=== PATIENT | male | born 2000 | race Caucasian/White ===

== ENCOUNTER 2019-08-27 17:47 | Emergency (ER) | payer OTHER ==
[2019-08-27 18:28] LABS: Influenza A Molecular Negative (Negative); Influenza B Molecular Negative (Negative)
[2019-08-27] MEDS ORDERED: Ondansetron INJ* 2 MG/ML VIAL IV ONE (18:49)
[2019-08-27] MEDS ORDERED: NS 0.9% 1000 ML** 1,000 ML IV ONE ×2 (18:49→20:58)
--- NOTE | 2019-08-27 18:58 | ED ---
Influenza-Like Illness - HPI Summary HPI Summary: 18 y/o male presented to [facility] for illness present for roughly 24 hours. Patient complains of vomiting roughly every 30 minutes, chills, sweats, constipation, rhinorrhea, and cramps. He denies sore throat. He notes a history of hypoglycemia also present in his mother, and a replaced heart valve in his grandfather. He notes no surgical history and no use of tobacco, alcohol, or other drugs. - History of Current Complaint Chief Complaint: EDFluSymptoms Time Seen by Provider: 08/27/19 18:26 Hx Obtained From: Patient Onset/Duration: Still Present Severity: Moderate Associated Signs & Symptoms: Cough, Vomiting - Allergy/Home Medications Allergies/Adverse Reactions: Allergies Allergy/AdvReac Type Severity Reaction Status Date / Time cefdinir [From Omnicef] Allergy Hives Verified 08/27/19 17:54 PMH/Surg Hx/FS Hx/Imm Hx Sensory History: Denies: Hx Legally Blind, Hx Deafness Opthamlomology History: Denies: Hx Legally Blind EENT History: Denies: Hx Deafness Infectious Disease History: No Infectious Disease History: Denies: Traveled Outside the [place] in Last 30 Days - Family History Known Family History: Positive: Other - hypoglycemia - Social History Alcohol Use: None Substance Use Type: Reports: None Smoking Status (MU): Never Smoked Tobacco Review of Systems Positive: Chills, Skin Diaphoresis Positive: Nasal Discharge Positive: Vomiting, Other - constipation Positive: Other - cramps All Other Systems Reviewed And Are Negative: Yes Physical Exam - Summary Physical Exam Summary: VITAL SIGNS: Reviewed. GENERAL: Patient is a well-developed and nourished male who is lying comfortable in the stretcher. Patient is not in any acute respiratory distress. HEAD AND FACE: No signs of trauma. No ecchymosis, hematomas or skull depressions. No sinus tenderness. EYES: PERRLA, EOMI x 2, No injected conjunctiva, no nystagmus. EARS: Hearing grossly intact. Ear canals and tympanic membranes are within normal limits. MOUTH: Oropharynx within normal limits. NECK: Supple, trachea is midline, no adenopathy, no JVD, no carotid bruit, no c- spine tenderness, neck with full ROM. CHEST: Symmetric, no tenderness at palpation. LUNGS: Clear to auscultation bilaterally. No wheezing or crackles. CVS: Regular rate and rhythm, S1 and S2 present, no murmurs or gallops appreciated. ABDOMEN: Soft, non-tender. No signs of distention. No rebound, no guarding, and no masses palpated. Bowel sounds are normal. EXTREMITIES: FROM in all major joints, no edema, no cyanosis or clubbing. NEURO: Alert and oriented x 3. No acute neurological deficits. Speech is normal and follows commands. SKIN: Dry and warm. Triage Information Reviewed: Yes Vital Signs On Initial Exam: Initial Vitals Temp Pulse Resp BP Pulse Ox 100.7 F 108 18 117/65 96 08/27/19 17:51 08/27/19 17:51 08/27/19 17:51 08/27/19 17:51 08/27/19 17:51 Vital Signs Reviewed: Yes Procedures - Sedation Patient Received Moderate/Deep Sedation with Procedure: No Diagnostics - Vital Signs Vital Signs Temp Pulse Resp BP Pulse Ox 08/27/19 17:51 100.7 F 108 18 117/65 96 - Laboratory Lab Results: Lab Results 08/27/19 08/27/19 Range/Units 17:57 18:40 POC Glucose (mg/dL) 90 (70-100) mg/dL Influenza A (Rapid) Negative (Negative) Influenza B (Rapid) Negative (Negative) Result Diagrams: 08/27/19 19:04 08/27/19 19:04 Lab Statement: Any lab studies that have been ordered have been reviewed, and results considered in the medical decision making process. Flu Symptom Course/Dx - Course Assessment/Plan: 18 y/o male presented to [facility] for illness present for roughly 24 hours. Patient complains of vomiting roughly every 30 minutes, chills, sweats , constipation, rhinorrhea, and cramps. He denies sore throat. He notes a history of hypoglycemia also present in his mother, and a replaced heart valve in his grandfather. He notes no surgical history and no use of tobacco, alcohol , or other drugs. In the ED course the patient was placed in a hall monitor , IV access was obtained, IV fluids started. He was given Zofran for nausea and vomiting. Blood test w/o a significant abnormality except for diagnosis of 14.6 , chloride 100, CRP of 79.4. Influenza A and B is negative. After the patient was hydrated and given Zofran the symptoms subsided. At this time the patient is able to tolerate fluids without any nausea and vomiting. Patient has no other complaints. Patient will be referred to Cardiology for Bigeminy. I discussed all the findings and test results with the patient. Patient was instructed to return to the emergency room immediately if any of the symptoms return worsens. Plan of care was discussed with the patient and understands and agrees. All questions were answered at patient satisfaction. There were no further complaints or concerns. Lung exam before discharge: CTA B/L. Good air exchange. No wheezing or crackles heard. CVS: S1 and S2 present. No murmurs appreciated. Patient is alert and oriented x 3. Patient is hemodynamically stable. Patient will be discharged home with follow up PCP in the next 2-3 days - Diagnoses Differential Diagnosis/HQI/PQRI: Positive: Influenza, Upper Respiratory Infection Provider Diagnoses: Nausea & vomiting Discharge ED - Sign-Out/Discharge Documenting (check all that apply): Patient Departure - dc - Discharge Plan Condition: Stable Disposition: HOME Prescriptions: Ondansetron TAB* [Zofran 4 MG Tab*] 4 mg PO Q8H PRN #10 tab PRN Reason: Vomiting Patient Education Materials: Acute Nausea and Vomiting (ED) Forms: *School Release Referrals: [facility] [address] [Outside] Sukhdev Hoang MD [Medical Doctor] - Additional Instructions: FOLLOW UP WITH DR. HOANG IN CARDIOLOGY WITHIN 3 DAYS. RETURN TO THE ED FOR ANY WORSENING OR NEW SYMPTOMS. - Billing Disposition and Condition Condition: STABLE Disposition: Home - Attestation Statements Document Initiated by Rex: Yes Documenting Scribe: José Luis Molina Provider For Whom Rex is Documenting (Include Credential): Jean Carlos Camacho MD Scribe Attestation: José Luis Smith, scribed for Jean Carlos Camacho MD on 08/28/19 at 1340. Scribe Documentation Reviewed: Yes Provider Attestation: The documentation as recorded by the José Luis werner accurately reflects the service I personally performed and the decisions made by me, Jean Carlos Camacho MD Status of Scribe Document: Viewed
[2019-08-27 19:10] LABS: ABS Basophils 0.1 10^3/ul (0-0.2); ABS Monocytes 0.9 10^3/ul (0-0.8); ABS Neutrophils 12.6 10^3/ul (1.5-7.7); Eosinophil % 0.1 %; Hematocrit 43 % (42-52); Hemoglobin 15.2 g/dL (14.0-18.0); Lymphocyte % 6.9 %; Mean Corpuscular HGB Conc 35 g/dL (31-36); Mean Corpuscular Hemoglobin 33 pg (27-31); Mean Corpuscular Volume 93 fL (80-94); Mean Platelet Volume 8.6 fL (7.4-10.4); Platelet Count 223 10^3/uL (150-450); Red Blood Count 4.64 10^6 /uL (4.18-5.48); Red Cell Distribution Width 13 % (10-15); White Blood Count 14.6 10^3/uL (3.5-10.8)
[2019-08-27 19:27] LABS: Albumin 4.5 g/dL (3.2-5.2); Albumin/Globulin Ratio 1.9 (1-3); C Reactive Protein 79.43 mg/L (<8.01); Calcium 9.2 mg/dL (8.6-10.3); EGFR African American 116.5 (>60); EGFR Non-African American 96.3 (>60); Globulin 2.4 g/dL (2-4); Potassium 3.9 mmol/L (3.5-5.0); Total Bilirubin 2.7 mg/dL (0.2-1.0); Total Protein 6.9 g/dL (6.4-8.9)
[2019-08-27 20:49] LABS: Urine Appearance Clear; Urine Bilirubin Negative (Negative); Urine Blood Negative (Negative); Urine Color Amber; Urine Glucose Negative (Negative); Urine Ketones Trace (Negative); Urine Nitrite Negative (Negative); Urine Protein Negative (Negative); Urine Urobilinogen Positive (Negative)
[2019-08-27 22:19] VITALS: BP 115/57
== END 2019-08-27 22:17 | disposition home or self-care (01) ==
LOC: ED 17:47
DX: R11.2 Nausea with vomiting, unspecified (principal); R05 Cough; E16.2 Hypoglycemia, unspecified; Z88.1 Allergy status to other antibiotic agents
CPT/HCPCS: 36415; 80053; 81003; 85025; 86140; 96361; 96374; 99283; J2405